=== PATIENT | female | born 1990 | race Caucasian/White ===

== ENCOUNTER → 2020-06-25 | Outpatient (CLI) | payer OTHER ==
[~2020-06-25] MED LIST: AMBIEN5 MG PO; CLARITIN-D 241 EACH PO; CLINDAMYCIN GEL 1% TOP; CLONIDINE HCL0.1 MG PO; FLONASE SPRAY; HYDROCODON-ACE1 EAC2 PO; IBU800 MG PO; KLONOPIN1 MG PO; LISINOPRIL5 MG PO; MYRBETRIQ50 MG PO; NEURONTIN600 MG PO; NICOTINE PATCH TOP; OMEPRAZOLE40 MG PO; PHENERGAN 25 MG25 M1 PO; SPRINTEC 28 DA1 EACH PO; SYMBICORT 16010.2 GM INH; VENTOLIN HFA 66.7 GM INH; VITAMIN D PO; XANAX1 MG PO
== END ==
LOC: KOH-I 11:30
DX: S92.351A Displaced fracture of fifth metatarsal bone, right foot, initial encounter for closed fracture (principal); X58.XXXA Exposure to other specified factors, initial encounter
CPT/HCPCS: 73630

== ENCOUNTER → 2020-07-10 | Day surgery (SDC) | payer OTHER ==
[~2020-07-10] VITALS: Ht 160 cm; Wt 99.8 kg
[2020-07-10 08:37] LABS: HEMOGLOBIN 12.7 gm/dl (12.3-15.3); WHITE BLOOD COUNT 8.2 K/UL (4.5-11.0)
[2020-07-10 09:08] LABS: BUN/CREATININE RATIO 21 (0-10)
== END | disposition home or self-care (01) ==
LOC: OR 07-03 08:50
PROVIDERS: Podiatrist Foot & Ankle Surgery
DX: S92.351A Displaced fracture of fifth metatarsal bone, right foot, initial encounter for closed fracture (principal); F41.9 Anxiety disorder, unspecified; F32.9 Major depressive disorder, single episode, unspecified; G89.29 Other chronic pain; I10 Essential (primary) hypertension; K21.9 Gastro-esophageal reflux disease without esophagitis; G25.81 Restless legs syndrome; J44.9 Chronic obstructive pulmonary disease, unspecified; F17.210 Nicotine dependence, cigarettes, uncomplicated; Z79.899 Other long term (current) drug therapy; X58.XXXA Exposure to other specified factors, initial encounter
CPT/HCPCS: 36415; 73610; 73630; 76000; 80048; 85027; C1713; J0690; J1100; J1885; J2001; J2250; J2405; J2704; J2795; J3010; J3370; J7120

== ENCOUNTER → 2020-07-18 | Outpatient (CLI) | payer OTHER | LOC: KOH-I 11:11 | DX: S92.351D Displaced fracture of fifth metatarsal bone, right foot, subsequent encounter for fracture with routine healing (principal); S82.401D Unspecified fracture of shaft of right fibula, subsequent encounter for closed fracture with routine healing | CPT/HCPCS: 73610; 73630 ==

== ENCOUNTER → 2020-07-30 | Outpatient (CLI) | payer OTHER | LOC: KOH-I 11:16 | DX: S92.351A Displaced fracture of fifth metatarsal bone, right foot, initial encounter for closed fracture (principal); M25.572 Pain in left ankle and joints of left foot; M79.672 Pain in left foot; M79.671 Pain in right foot | CPT/HCPCS: 73610; 73630 ==

== ENCOUNTER 2020-08-09 16:12 | Emergency (ER) | payer OTHER | END 2020-08-09 17:08 | disposition home or self-care (01) | LOC: ER1 16:12 | DX: Z46.89 Encounter for fitting and adjustment of other specified devices (principal); I10 Essential (primary) hypertension; F17.210 Nicotine dependence, cigarettes, uncomplicated | CPT/HCPCS: 99283 ==

== ENCOUNTER → 2020-09-19 | Outpatient (CLI) | payer OTHER | LOC: KOH-I 10:26 | DX: S92.351D Displaced fracture of fifth metatarsal bone, right foot, subsequent encounter for fracture with routine healing (principal) | CPT/HCPCS: 73630 ==